=== PATIENT | female | born 1945 | race Caucasian/White ===

== ENCOUNTER 2020-11-13 11:02 | Inpatient (IN) ==
[2020-11-13 11:19] VITALS: BMI 24.3
--- NOTE | 2020-11-13 11:35 | DR.GENAD ---
HPI Time Seen Time Seen by Provider: 11/13/20 11:29 PCP Primary Care Physician: ALLIGOOD Complaint/Symptoms Chief Complaint:: "TESTED POS 11-10-20, STARTED Z PACK AND VITAMINS, HAS PROGRESSIVLY GOTTEN WORSE, SHAKING, AND CONFUSED AT TIMES" Self Treatment fo Chief Complaint: ZPACK AND VITAMINS COVID-19 Coronavirus risk:travel/contact w/high risk person: Yes Has patient experienced Coronavirus symptoms: Yes Coronavirus symptoms experienced: Fever, Coughing and Shortness of Breath Source History Provided: Patient and Family Member Mode of Arrival Mode of Arrival: Wheelchair Timing Onset of Chief Complaint: 11/10/20 PMH PMH Past Medical History: Yes Past Medical History: GERD and Hypertension Past Medical History Comment: HIATAL HERNIA Past Surgical History: Yes Surgical History: Hysterectomy Family History History of Family Medical Conditions: Yes Family Medical History: Diabetes Mellitus, Cancer, ID and Hypertension Social History Does patient currently use any type of tobacco product: No Have you used tobacco products in the last 12 months: No Type of Tobacco Use: None Does any household member use tobacco: No Alcohol Use: None Do you use any recreational Drugs:: No Lives With: Family Lives Where: Home Travel Risk Coronavirus risk:travel/contact w/high risk person: Yes Has patient experienced Coronavirus symptoms: Yes Coronavirus symptoms experienced: Fever, Coughing and Shortness of Breath Infectious screening In the last 2 months have you had wt loss of >10#?: NO Have you had fever, night sweats or hemotysis?: No Have you traveled outside the country in the last 6 months?: No Isolation: Droplet PE Vital Signs Vitals: Temperature 97.7 F Pulse Rate 97 Respiratory Rate 22 Blood Pressure 120/87 O2 Sat by Pulse Oximetry 93 ROR Labs Reviewed Result Diagrams: 11/13/20 11:45 11/13/20 11:45 Laboratory: WBC 5.8 X10^3/uL (3.6-10.0) 11/13/20 11:45 RBC 4.48 X10^6/uL (3.5-5.4) 11/13/20 11:45 Hgb 11.7 g/dL (12.0-16.0) L 11/13/20 11:45 Hct 33.7 % (36.0-47.0) L 11/13/20 11:45 MCV 75.3 fL (80.0-100.0) L 11/13/20 11:45 MCH 26.2 pg (27.0-34.0) L 11/13/20 11:45 MCHC 34.8 g/dL (33.0-35.0) 11/13/20 11:45 RDW 14.1 % (11.6-16.5) 11/13/20 11:45 Plt Count 307 X10^3/uL (150.0-450.0) 11/13/20 11:45 MPV 7.7 fL (7.4-11.0) 11/13/20 11:45 Neut % (Auto) 87.4 % (42.0-75.0) H 11/13/20 11:45 Lymph % (Auto) 3.8 % (21.0-51.0) L 11/13/20 11:45 Mckenzie % (Auto) 8.7 % (0.0-13.0) 11/13/20 11:45 Eos % (Auto) 0.0 % (0.9-2.9) L 11/13/20 11:45 Baso % (Auto) 0.1 % (0.2-1.0) L 11/13/20 11:45 Neut # (Auto) 5.1 x10^3/uL (2.2-4.8) H 11/13/20 11:45 Lymph # (Auto) 0.2 X10^3/uL (1.3-2.9) L 11/13/20 11:45 Mckenzie # (Auto) 0.5 x10^3/uL (0.3-0.8) 11/13/20 11:45 Eos # (Auto) 0.0 x10^3/uL (0.0-0.2) 11/13/20 11:45 Baso # (Auto) 0.0 X10^3/uL (0.0-0.1) 11/13/20 11:45 Absolute Nucleated RBC 0.0 /100WBC 11/13/20 11:45 D-Dimer 1.17 ug/ml (0.0-0.57) H* 11/13/20 11:45 Sodium 111 mmol/L (136-145) L* 11/13/20 11:45 Corrected Sodium 112 mmol/L (136-145) L 11/13/20 11:45 Potassium 2.7 mmol/L (3.5-5.1) L* 11/13/20 11:45 Chloride 76 mmol/L (98-107) L* 11/13/20 11:45 Carbon Dioxide 26.1 mmol/L (21-32) 11/13/20 11:45 BUN 4 mg/dL (7-18) L 11/13/20 11:45 Creatinine 0.47 mg/dL (0.55-1.02) L 11/13/20 11:45 Est GFR (MDRD) Af Amer > 60 (>60) 11/13/20 11:45 Est GFR (MDRD) Non-Af > 60 (>60) 11/13/20 11:45 Glucose 122 mg/dL (65-99) H 11/13/20 11:45 Calcium 8.0 mg/dL (8.5-10.1) L 11/13/20 11:45 Corrected Calcium 9.1 mg/dL (8.5-10.1) 11/13/20 11:45 Ferritin 205 ng/mL (8-252) 11/13/20 11:45 Total Bilirubin 0.80 mg/dL (0.2-1.0) 11/13/20 11:45 AST 29 Units/L (15-37) 11/13/20 11:45 ALT 16 Units/L (12-78) 11/13/20 11:45 Alkaline Phosphatase 91 Units/L (46-116) 11/13/20 11:45 C-Reactive Protein 30.20 mg/L (0-3.0) H 11/13/20 11:45 B-Natriuretic Peptide 226 pg/mL (0-79) H 11/13/20 11:45 Total Protein 6.9 g/dL (6.4-8.2) 11/13/20 11:45 Albumin 2.6 g/dL (3.4-5.0) L 11/13/20 11:45 Globulin 4.3 g/dL (2.5-4.5) 11/13/20 11:45 Albumin/Globulin Ratio 0.6 Ratio (1.1-2.1) L 11/13/20 11:45 Specimen Type Catherized urine 11/13/20 12:04 Urine Color Yellow (YELLOW) 11/13/20 12:04 Urine Appearance Flocculent (CLEAR) 11/13/20 12:04 Urine pH 6.0 (5.0 - 8.0) 11/13/20 12:04 Ur Specific [place] 1.020 (1.000-1.030) 11/13/20 12:04 Urine Protein 2+ (NEGATIVE) 11/13/20 12:04 Urine Glucose (UA) Negative (NEGATIVE) 11/13/20 12:04 Urine Ketones 4+ (NEGATIVE) 11/13/20 12:04 Urine Occult Blood 1+ (NEGATIVE) 11/13/20 12:04 Urine Nitrite Positive (NEGATIVE) 11/13/20 12:04 Urine Bilirubin Negative (NEGATIVE) 11/13/20 12:04 Urine Urobilinogen Normal (NORMAL) 11/13/20 12:04 Ur Leukocyte Esterase 2+ (NEGATIVE) 11/13/20 12:04 Urine RBC 5-10 /HPF (0-3) A 11/13/20 12:04 Urine WBC Tntc /HPF (0-5) A 11/13/20 12:04 Ur Squamous Epith Cells Moderate /HPF (NEGATIVE) 11/13/20 12:04 Ur Transition Epith Cell Few /HPF (NEGATIVE) 11/13/20 12:04 Urine Bacteria 3+ /HPF (NEGATIVE) 11/13/20 12:04 Other Casts Few /LPF (NEGATIVE) 11/13/20 12:04 Urine Mucus Moderate /HPF (NEGATIVE) 11/13/20 12:04 Ur Culture Indicated? Yes/culture set up 11/13/20 12:04 Opioid Opioid Risk Tool Age (Chuck box if 16-45): No History of Preadolescent Sexual Abuse: No Total: 0 Total Score Risk Category: Low Risk Copyright: [facility] predicting aberrant behaviors Diagnosis Discharge Problem: Acute hyponatremia, Acute UTI, Hypokalemia, COVID-19 virus infection Pneumonia Qualifiers: Pneumonia type: due to unspecified organism Laterality: bilateral Lung location: lower lobe of lung Qualified Code(s): J18.9 - Pneumonia, unspecified organism Instructions Forms: Precautions for COVID19 Patient Portal Social Distancing
[2020-11-13 11:57] LABS: BASOPHILS % (AUTO) 0.1 % (0.2-1.0); HEMATOCRIT 33.7 % (36.0-47.0); HEMOGLOBIN 11.7 g/dL (12.0-16.0); LYMPHOCYTES # (AUTO) 0.2 X10^3/uL (1.3-2.9); LYMPHOCYTES % (AUTO) 3.8 % (21.0-51.0); MEAN CORPUSCULAR HEMOGLOBIN 26.2 pg (27.0-34.0); MEAN CORPUSCULAR HGB CONC 34.8 g/dL (33.0-35.0); MEAN CORPUSCULAR VOLUME 75.3 fL (80.0-100.0); MEAN PLATELET VOLUME 7.7 fL (7.4-11.0); MONOCYTES # (AUTO) 0.5 x10^3/uL (0.3-0.8); MONOCYTES % (AUTO) 8.7 % (0.0-13.0); NEUTROPHILS # (AUTO) 5.1 x10^3/uL (2.2-4.8); NEUTROPHILS % (AUTO) 87.4 % (42.0-75.0); PLATELET COUNT 307 X10^3/uL (150.0-450.0); RED BLOOD COUNT 4.48 X10^6/uL (3.5-5.4); RED CELL DISTRIBUTION WIDTH 14.1 % (11.6-16.5); WHITE BLOOD COUNT 5.8 X10^3/uL (3.6-10.0)
[2020-11-13 12:08] LABS: ALANINE AMINOTRANSFERASE 16 Units/L (12-78); ALBUMIN 2.6 g/dL (3.4-5.0); ALKALINE PHOSPHATASE 91 Units/L (46-116); ASPARTATE AMINO TRANSFERASE 29 Units/L (15-37); BLOOD UREA NITROGEN 4 mg/dL (7-18); CARBON DIOXIDE 26.1 mmol/L (21-32); COR CA(FOR HYPOALB) 9.1 mg/dL (8.5-10.1); COR NA(FOR HYPERGLY) 112 mmol/L (136-145); CREATININE 0.47 mg/dL (0.55-1.02); TOTAL PROTEIN 6.9 g/dL (6.4-8.2); eGFR NON BLACK RACES > 60 (>60)
[2020-11-13] MEDS ORDERED: NS 1000 ML 1,000 ML ONE (12:19)
[2020-11-13 12:20] LABS: CHLORIDE 76 mmol/L (98-107); SODIUM 111 mmol/L (136-145)
[2020-11-13 12:28] LABS: BILIRUBIN,URINE NEGATIVE (NEGATIVE); BLOOD/HEMOGLOBIN,URINE 1+ (NEGATIVE); GLUCOSE, URINE NEGATIVE (NEGATIVE); KETONES,URINE 4+ (NEGATIVE); LEUKOCYTE ESTERASE ,URINE 2+ (NEGATIVE); NITRITES,URINE POSITIVE (NEGATIVE); PROTEIN,URINE 2+ (NEGATIVE); UROBILINOGEN,URINE NORMAL (NORMAL)
[2020-11-13 12:30] LABS: COLOR,URINE YELLOW (YELLOW)
[2020-11-13 12:31] LABS: APPEARANCE,URINE FLOCCULENT (CLEAR)
[2020-11-13] MEDS ORDERED: NS 1000 ML 1,000 ML IV ONE (12:32)
[2020-11-13 12:41] LABS: BACTERIA,URINE 3+ /HPF (NEGATIVE); SQUAMOUS EPITHELIAL CELL,UR MODERATE /HPF (NEGATIVE); TRANSITIONAL EPI CELLS,URINE FEW /HPF (NEGATIVE)
[2020-11-13 12:42] LABS: MUCUS,URINE MODERATE /HPF (NEGATIVE); OTHER CASTS, URINE FEW /LPF (NEGATIVE)
[2020-11-13] MEDS ORDERED: POTASSIUM CHLORIDE LIQ 20 MEQ UDC PO ONE (13:06)
[2020-11-13] MEDS ORDERED: POTASSIUM CHLORIDE LIQ 20 MEQ UDC ONE (13:17)
--- NOTE | 2020-11-13 13:59 | CT ---
PROCEDURE: CT Head without Contrast .HISTORY: Confusion and altered mental status.TECHNIQUE: Axial images were performed through the head without the administration of IV contrast with multiplanar reformations . Dose reduction techniques including Automated Exposure Control (AEC) and adjustment of mA and kV were utilized .COMPARISON: None .TECHNICAL QUALITY: Satisfactory .FINDINGS:Brain shows no mass, hemorrhage, or acute stroke.Mild periventricular old micro ischemic changes.Ventricles are normal size for patient's age.No acute skull or scalp abnormality.Visualized sinuses and mastoids are clear.IMPRESSION:1. No acute intracranial abnormality.2. Senescent changes.Electronically signed by: Ganga Wilkins (Nov 13, 2020 13:57:17)
--- NOTE | 2020-11-13 14:02 | CT ---
PROCEDURE: CTA Chest .HISTORY: covid, eklevated d-dimer .TECHNIQUE: Axial images were performed through the chest with the administration of IV contrast with multiplanar reformations . 3D and MIPS reconstructions were performed and reviewed. Dose reduction techniques including Automated Exposure Control (AEC) and adjustment of mA and kV were utilized .COMPARISON: None .TECHNICAL QUALITY: Satisfactory .FINDINGS:[id number] atherosclerotic calcifications thoracic aorta with mild tortuosity and no aneurysm or dissection.No evidence of pulmonary embolus.Mediastinum and hilar regions show no masses or lymphadenopathy.Moderate hiatal hernia.Normal size heart with trace pericardial effusion.Mild patchy peripheral ground-glass consolidation lung bases and right upper lobe consistent with mild COVID-19 pneumonia. No masses or pleural fluid. No pneumothorax.Visualized upper abdomen shows no significant abnormality.No acute bony abnormality.IMPRESSION:1. No pulmonary embolus or aortic dissection.2. Mild bilateral COVID-19 pneumonia.3. Trace pericardial effusion.Electronically signed by: Ganga Wilkins (Nov 13, 2020 14:00:55)
[2020-11-13] MEDS ORDERED: ROCEPHIN VIAL 1 GRAM 1 G in NS 100 ML IV + SPIKE MINIBAG* 100 ML IV ONE (14:06)
[2020-11-13] MEDS ORDERED: NS 250 ML IV 250 ML IV ONE (14:12)
--- NOTE | 2020-11-13 14:12 | RAD ---
HISTORYSOB, COVID+STUDYCHEST, 1 VIEWCOMPARISONCT chest same dayFINDINGSThe cardiomediastinal silhouette is unremarkable. Patchy bilateral airspace opacities. The bony thorax appears intact.IMPRESSIONBilateral airspace opacities consistent with history of COVID-19. Continued follow-up recommended.Electronically signed by: SARIAH CAT (Nov 13, 2020 14:10:37)
[2020-11-13] MEDS ORDERED: ROCEPHIN 1 GRAM IV PREMIX 1 G/50 ML IV.SOLN. IV ONE (14:13)
[2020-11-13 14:54] LABS: ABG ALLEN TEST POS; ABG BASE EXCESS 1.6 mmol/L (-2.0-2.0); ABG HCO3 24.2 mmol/L (22-26)
[2020-11-13] MEDS ORDERED: ROBITUSSIN AC PO PRN (16:24)
[2020-11-13] MEDS: REMDESIVIR 200 MG in NS 250 ML IV 250 ML IV ONE (16:25)
[2020-11-13 18:56] LABS: BILIRUBIN,URINE NEGATIVE (NEGATIVE); BLOOD/HEMOGLOBIN,URINE 1+ (NEGATIVE); GLUCOSE, URINE NEGATIVE (NEGATIVE); KETONES,URINE 3+ (NEGATIVE); LEUKOCYTE ESTERASE ,URINE 3+ (NEGATIVE); NITRITES,URINE NEGATIVE (NEGATIVE); PH,URINE 6.5 (5.0 - 8.0); PROTEIN,URINE 1+ (NEGATIVE); UROBILINOGEN,URINE NORMAL (NORMAL)
[2020-11-13 18:58] LABS: APPEARANCE,URINE SLIGHTLY HAZY (CLEAR); COLOR,URINE YELLOW (YELLOW)
[2020-11-13 19:10] LABS: BACTERIA,URINE 2+ /HPF (NEGATIVE); COARSE GRANULAR CASTS,URINE FEW /HPF (NEGATIVE); MUCUS,URINE FEW /HPF (NEGATIVE); SQUAMOUS EPITHELIAL CELL,UR FEW /HPF (NEGATIVE)
[2020-11-13] MEDS: PULMICORT NEB TX 0.5 MG NEB SCH (21:10)
[2020-11-13] MEDS: BROVANA IN SCH (21:10)
[2020-11-13] MEDS: PEPCID TAB 40 MG PO SCH (21:13)
[2020-11-13] MEDS: ZINC SULFATE PO SCH (21:13)
[2020-11-13] MEDS: LOPRESSOR TAB 50 MG PO SCH (21:13)
[2020-11-13] MEDS: LOVENOX INJ 30 MG SYR SC SCH (21:14)
[2020-11-13] MEDS: SOLU-Medrol 40 MG VIAL IVP SCH (21:16)
[2020-11-13] MEDS: NS 1000 ML 1,000 ML IV SCH (21:19)
[2020-11-13] MEDS: ASCORBIC ACID INJ MULTI-DOSE VIAL 1,500 MG in NS 100 ML IV 100 ML IV SCH (21:20)
[2020-11-14] MEDS ORDERED: COLACE CAP 100 MG PO PRN (00:46)
[2020-11-14] MEDS: ASCORBIC ACID INJ MULTI-DOSE VIAL 1,500 MG in NS 100 ML IV 100 ML IV SCH ×4 (02:18→20:58)
[2020-11-14] MEDS: SOLU-Medrol 40 MG VIAL IVP SCH ×2 (05:00→23:00)
[2020-11-14 07:01] LABS: BASOPHILS % (AUTO) 0.5 % (0.2-1.0); HEMATOCRIT 34.6 % (36.0-47.0); LYMPHOCYTES # (AUTO) 0.2 X10^3/uL (1.3-2.9); LYMPHOCYTES % (AUTO) 5.8 % (21.0-51.0); MEAN CORPUSCULAR HEMOGLOBIN 26.3 pg (27.0-34.0); MEAN CORPUSCULAR HGB CONC 34.7 g/dL (33.0-35.0); MEAN CORPUSCULAR VOLUME 75.6 fL (80.0-100.0); MEAN PLATELET VOLUME 8.2 fL (7.4-11.0); MONOCYTES # (AUTO) 0.1 x10^3/uL (0.3-0.8); MONOCYTES % (AUTO) 2.4 % (0.0-13.0); NEUTROPHILS # (AUTO) 3.8 x10^3/uL (2.2-4.8); NEUTROPHILS % (AUTO) 91.3 % (42.0-75.0); PLATELET COUNT 351 X10^3/uL (150.0-450.0); RED BLOOD COUNT 4.58 X10^6/uL (3.5-5.4); RED CELL DISTRIBUTION WIDTH 14.5 % (11.6-16.5); WHITE BLOOD COUNT 4.2 X10^3/uL (3.6-10.0)
[2020-11-14 07:51] LABS: BAND NEUTROPHILS % 1 % (0-10)
[2020-11-14 07:52] LABS: ALANINE AMINOTRANSFERASE 19 Units/L (12-78); ALBUMIN 2.4 g/dL (3.4-5.0); ALKALINE PHOSPHATASE 84 Units/L (46-116); ASPARTATE AMINO TRANSFERASE 29 Units/L (15-37); BLOOD UREA NITROGEN 4 mg/dL (7-18); CALCIUM 8.1 mg/dL (8.5-10.1); CARBON DIOXIDE 27.5 mmol/L (21-32); CHLORIDE 91 mmol/L (98-107); CKMB % 2.9 % (<4); COR CA(FOR HYPOALB) 9.4 mg/dL (8.5-10.1); COR NA(FOR HYPERGLY) 129 mmol/L (136-145); CREATINE KINASE 201 Units/L (26-192); CREATININE 0.53 mg/dL (0.55-1.02); MAGNESIUM 1.7 mg/dL (1.7-2.9); PLATELET MORPHOLOGY COMMENT NORMAL (NORMAL); SODIUM 128 mmol/L (136-145); TOTAL PROTEIN 6.5 g/dL (6.4-8.2); TROPONIN I < 0.02 ng/mL (0-1.5); eGFR NON BLACK RACES > 60 (>60)
[2020-11-14 08:04] LABS: CREATINE KINASE MB 5.8 ng/mL (0-4.0)
[2020-11-14] MEDS ORDERED: NS 250 ML IV 250 ML IV ONE (08:27)
[2020-11-14] MEDS ORDERED: VITAMIN A PO SCH (09:00)
[2020-11-14] MEDS ORDERED: VITAMIN D (1.25MG) PO SCH (09:00)
[2020-11-14] MEDS: REMDESIVIR 100 MG in NS 100 ML IV + SPIKE MINIBAG* 120 ML IV SCH (09:06)
[2020-11-14] MEDS: LOPRESSOR TAB 50 MG PO SCH ×2 (09:09→20:59)
[2020-11-14] MEDS: PULMICORT NEB TX 0.5 MG NEB SCH ×2 (09:10→20:31)
[2020-11-14] MEDS: BROVANA IN SCH ×2 (09:10→20:31)
[2020-11-14] MEDS: ZINC SULFATE PO SCH ×2 (09:11→20:59)
[2020-11-14] MEDS: PROTONIX TAB 40 MG PO SCH (09:16)
[2020-11-14] MEDS: LOVENOX INJ 30 MG SYR SC SCH ×2 (09:17→20:55)
[2020-11-14] MEDS: TRICOR TAB 160 MG PO SCH (09:17)
--- NOTE | 2020-11-14 10:43 | RAD ---
HISTORYCOVID PNEUMONIA, SOB, FOLLOW UPSTUDYCHEST x-ray, 1 VIEWCOMPARISONX-ray from previous dayFINDINGSLower lung infiltrates are unchanged. Probable COPD. Persistent cardiomegaly without pulmonary venous congestion. No pneumothorax or pleural effusion is seen.IMPRESSIONBilateral pneumonia appears unchanged.Electronically signed by: Otoniel Leonardo (Nov 14, 2020 10:40:53)
[2020-11-14] MEDS ORDERED: K-DUR TAB 20 MEQ PO PRN (11:43)
[2020-11-14] MEDS ORDERED: POTASSIUM CHL 40 MEQ/NS 0.45% 500 ML IV PRN ×2 (11:43→11:44)
[2020-11-14] MEDS ORDERED: K-RIDER 10 MEQ/NS 100 ML 10 MEQ/100 ML BAG IV PRN ×2 (11:43→11:44)
[2020-11-14] MEDS ORDERED: MICRO K EXTEN CAP 10 MEQ PO PRN ×2 (11:43→11:44)
[2020-11-14] MEDS ORDERED: POTASSIUM CHL 60 MEQ/NS 0.45% 500 ML IV PRN ×2 (11:43→11:44)
[2020-11-14] MEDS ORDERED: POTASSIUM CHLORIDE LIQ 20 MEQ UDC PO PRN ×2 (11:43→11:44)
[2020-11-14] MEDS ORDERED: KLOR-CON PO PRN (11:43)
[2020-11-14] MEDS: K-DUR TAB 20 MEQ PO PRN ×2 (12:21→13:39)
[2020-11-14] MEDS: KLOR-CON PO PRN ×2 (13:39→17:47)
[2020-11-14] MEDS ORDERED: ROCEPHIN 1 GRAM IV PREMIX 1 G/50 ML IV.SOLN. IV ONE (15:29)
[2020-11-14] MEDS: REMDESIVIR 200 MG in NS 250 ML IV 250 ML IV ONE (16:09)
[2020-11-14] MEDS: MAGNESIUM SULFATE 1 GRAM/100 mL PREMIX 1 GM/100 ML BAG IV PRN ×2 (18:00→21:48)
--- NOTE | 2020-11-14 18:12 | DR.H&P ---
H&P - History & Physical for Day of: H&P Date: 11/14/20 - Chief Complaint Chief Complaint: WEAKNESS, DIZZY, CONFUSED PER FAMILY COVID 19+ - History of Present Illness History of Present Illness: PT IS 75 WF ER ADMISSION WITH REPORTS PER SON PT TESTED POS 11-10-20, STARTED Z PACK AND VITAMINS, HAS PROGRESSIVLY GOTTEN WORSE, SHAKING, AND CONFUSED AT TIMES" PT WAS NOTED TO HAVE HYPONATREMIA ON ADMISSION LABS. PT ADMITTED FOR TREATMENT OF ACUTE ILLNESS. - Past Medical History Past Medical History: Hypertension, GERD - Past Surgical History Surgical History: Unknown - Family History Family Medical History: [place] - Social History Does patient currently use any type of tobacco product: No Have you used tobacco products in the last 12 months: No Type of Tobacco Use: None Does any household member use tobacco: No Alcohol Use: None Drug Use: None Prescription drug monitoring program results: PDMP reviewed and no concerns identified - Medications Home Medications: No Known Drug Allergies Allergy (Verified 11/13/20 13:52) CONTINUE taking the following medications amlodipine 5 mg PO DAILY 11/13/20 [History] azithromycin 250 mg PO DAILY 11/13/20 [History] codeine-guaifenesin [Virtussin AC] 10 ml PO PRN PRN 11/13/20 [History] colesevelam 625 mg PO PRN PRN 11/13/20 [History] famotidine 40 mg PO HS 11/13/20 [History] metoprolol tartrate 50 mg PO BID 11/13/20 [History] pantoprazole 40 mg PO DAILY 11/13/20 [History] - Review of Systems Constitutional: Chills, Weakness, Malaise Eyes: No Symptoms Reported ENT: No Symptoms Reported Respiratory: SOB with Excertion Cardiovascular: denies: Chest Pain Gastrointestinal: Nausea, Vomiting, Other (APPETITE LOSS) Genitourinary: No Symptoms Reported Musculoskeletal: No Symptoms Reported Skin: No Symptoms Reported Neurological: Weakness, Confusion - Physical Exam Vital Signs: Temperature 98.2 F Pulse Rate [Left Brachial] 72 Pulse Rate 67 Respiratory Rate 20 Blood Pressure [Left Arm] 118/58 Blood Pressure 180/69 O2 Sat by Pulse Oximetry 97 Oriented: Person Eyes: Normal Ear: Normal Nose: Normal Throat: Dry Respiratory: Diminished Throughout Cardiovascular: Tachycardia, Edema : Normal Auscultation: Bowel Sounds: Normal Palpation: Normal Tenderness: Epigastric, Mild Skin: Decreased Turgur Musculoskeletal: Right, Left, Motor Deficit Psychiatric: Anxiety Affect: Anxious Speech Pattern: Clear, Appropriate - Assessment/Plan (1) Acute hyponatremia Status: Acute Plan: ADMIT, CT HEAD ON ADMISSION. BLOOD AND URINE CULTURE ON ADMISSION, GENTLE IV HYDRATION. STRICT I&OS, BP AND CARDIAC MONITORING. IV ATBX, SOLU MEDROL, LOVENOX, REMDESIVIR. AM LABS, VERIFY HOME MEDICATION (2) COVID-19 virus infection Status: Acute (3) Pneumonia Qualifiers: Pneumonia type: due to unspecified organism Laterality: bilateral Lung location: lower lobe of lung Qualified Code(s): J18.9 - Pneumonia, unspecified organism Status: Acute (4) Acute UTI Status: Acute (5) Hypokalemia Status: Acute - Allergies Allergies/Adverse Reactions: Allergies Allergy/AdvReac Type Severity Reaction Status Date / Time No Known Drug Allergies Allergy Verified 11/13/20 13:52
[2020-11-14] MEDS: NS 1000 ML 1,000 ML IV SCH (20:53)
[2020-11-14] MEDS: PEPCID TAB 40 MG PO SCH (20:59)
[2020-11-14] MEDS: COLACE CAP 100 MG PO SCH (21:00)
[2020-11-14] MEDS: SOLU-Medrol 125 MG VIAL IVP SCH (21:00)
[2020-11-15] MEDS: ASCORBIC ACID INJ MULTI-DOSE VIAL 1,500 MG in NS 100 ML IV 100 ML IV SCH ×4 (02:13→21:32)
[2020-11-15] MEDS: SOLU-Medrol 125 MG VIAL IVP SCH ×3 (05:00→21:31)
[2020-11-15 06:41] LABS: MAGNESIUM 2.3 mg/dL (1.7-2.9)
[2020-11-15 06:50] LABS: BASOPHILS # (AUTO) 0.1 X10^3/uL (0.0-0.1); BASOPHILS % (AUTO) 0.6 % (0.2-1.0); HEMATOCRIT 33.5 % (36.0-47.0); HEMOGLOBIN 11.3 g/dL (12.0-16.0); LYMPHOCYTES # (AUTO) 0.6 X10^3/uL (1.3-2.9); LYMPHOCYTES % (AUTO) 4.9 % (21.0-51.0); MEAN CORPUSCULAR HEMOGLOBIN 25.9 pg (27.0-34.0); MEAN CORPUSCULAR HGB CONC 33.6 g/dL (33.0-35.0); MEAN PLATELET VOLUME 8.2 fL (7.4-11.0); MONOCYTES # (AUTO) 0.6 x10^3/uL (0.3-0.8); MONOCYTES % (AUTO) 4.9 % (0.0-13.0); NEUTROPHILS # (AUTO) 11.7 x10^3/uL (2.2-4.8); NEUTROPHILS % (AUTO) 89.6 % (42.0-75.0); PLATELET COUNT 384 X10^3/uL (150.0-450.0); RED BLOOD COUNT 4.35 X10^6/uL (3.5-5.4); RED CELL DISTRIBUTION WIDTH 14.5 % (11.6-16.5)
[2020-11-15 07:01] LABS: ALANINE AMINOTRANSFERASE 20 Units/L (12-78); ALBUMIN 2.4 g/dL (3.4-5.0); ALKALINE PHOSPHATASE 87 Units/L (46-116); ASPARTATE AMINO TRANSFERASE 30 Units/L (15-37); BLOOD UREA NITROGEN 4 mg/dL (7-18); CALCIUM 7.7 mg/dL (8.5-10.1); CARBON DIOXIDE 29.8 mmol/L (21-32); CHLORIDE 95 mmol/L (98-107); COR NA(FOR HYPERGLY) 133 mmol/L (136-145); CREATININE 0.46 mg/dL (0.55-1.02); SODIUM 132 mmol/L (136-145); eGFR NON BLACK RACES > 60 (>60)
[2020-11-15] MEDS ORDERED: NS 100 ML IV 100 ML ONE (08:26)
[2020-11-15] MEDS: LOPRESSOR TAB 50 MG PO SCH ×2 (08:28→21:34)
[2020-11-15] MEDS: MILK OF MAGNESIA PO SCH (08:28)
[2020-11-15] MEDS: REMDESIVIR 100 MG in NS 100 ML IV + SPIKE MINIBAG* 120 ML IV SCH (08:29)
[2020-11-15] MEDS: PROTONIX TAB 40 MG PO SCH (08:29)
[2020-11-15] MEDS: TRICOR TAB 160 MG PO SCH (08:29)
[2020-11-15] MEDS: VITAMIN D3 125 mcg (5,000 UNITS) PO SCH (08:30)
[2020-11-15] MEDS: VITAMIN A PO SCH (08:30)
[2020-11-15] MEDS: ZINC SULFATE PO SCH ×2 (08:30→21:35)
[2020-11-15] MEDS: LOVENOX INJ 30 MG SYR SC SCH ×2 (08:32→21:33)
[2020-11-15] MEDS: K-DUR TAB 20 MEQ PO PRN ×2 (09:40→21:35)
--- NOTE | 2020-11-15 10:28 | RAD ---
HISTORYCOVID PNEUMONIA Relevant Clinical InformationSTUDYCHEST, 1 [id number]/23/2021FINDINGSTrachea is midline. There is stable mild cardiomegaly. There is unchanged mild elevation of the diaphragm. There is again seen and interstitial and alveolar infiltrate involving the right lower lobe and some ground-glass radiopacities in the left base, no pleural effusion or pneumothorax. Overall no significant change.IMPRESSIONStable interstitial and ground-glass radiopacities involving the bases right more than left.Electronically signed by: Leatha Edward (Nov 15, 2020 10:26:26)
[2020-11-15] MEDS: ROCEPHIN VIAL 1 GRAM 1 G in NS 100 ML IV + SPIKE MINIBAG* 100 ML IV SCH (11:58)
[2020-11-15] MEDS: NS 1000 ML 1,000 ML IV SCH ×2 (11:59→21:30)
[2020-11-15 16:25] LABS: ABG BASE EXCESS 9.3 mmol/L (-2.0-2.0); ABG HCO3 32.5 mmol/L (22-26)
[2020-11-15] MEDS: PULMICORT NEB TX 0.5 MG NEB SCH (19:40)
[2020-11-15] MEDS: BROVANA IN SCH (19:40)
[2020-11-15] MEDS ORDERED: TYLENOL 325 MG TAB PO PRN (19:44)
[2020-11-15] MEDS: PEPCID TAB 40 MG PO SCH (21:34)
[2020-11-15] MEDS: COLACE CAP 100 MG PO SCH (21:35)
[2020-11-16] MEDS: ASCORBIC ACID INJ MULTI-DOSE VIAL 1,500 MG in NS 100 ML IV 100 ML IV SCH ×4 (02:23→20:48)
[2020-11-16] MEDS: SOLU-Medrol 125 MG VIAL IVP SCH ×3 (05:06→22:00)
[2020-11-16 06:51] LABS: BASOPHILS % (AUTO) 0.1 % (0.2-1.0); EOSINOPHILS % (AUTO) 0.1 % (0.9-2.9); HEMATOCRIT 33.8 % (36.0-47.0); HEMOGLOBIN 11.3 g/dL (12.0-16.0); LYMPHOCYTES # (AUTO) 0.3 X10^3/uL (1.3-2.9); LYMPHOCYTES % (AUTO) 1.8 % (21.0-51.0); MEAN CORPUSCULAR HEMOGLOBIN 25.9 pg (27.0-34.0); MEAN CORPUSCULAR HGB CONC 33.4 g/dL (33.0-35.0); MEAN CORPUSCULAR VOLUME 77.5 fL (80.0-100.0); MEAN PLATELET VOLUME 7.8 fL (7.4-11.0); MONOCYTES # (AUTO) 0.6 x10^3/uL (0.3-0.8); MONOCYTES % (AUTO) 3.9 % (0.0-13.0); NEUTROPHILS # (AUTO) 14.3 x10^3/uL (2.2-4.8); NEUTROPHILS % (AUTO) 94.1 % (42.0-75.0); PLATELET COUNT 440 X10^3/uL (150.0-450.0); RED BLOOD COUNT 4.36 X10^6/uL (3.5-5.4); WHITE BLOOD COUNT 15.2 X10^3/uL (3.6-10.0)
[2020-11-16 07:43] LABS: ALANINE AMINOTRANSFERASE 25 Units/L (12-78); ALBUMIN 2.3 g/dL (3.4-5.0); ALKALINE PHOSPHATASE 94 Units/L (46-116); ASPARTATE AMINO TRANSFERASE 30 Units/L (15-37); BLOOD UREA NITROGEN 6 mg/dL (7-18); CALCIUM 7.6 mg/dL (8.5-10.1); CARBON DIOXIDE 31.7 mmol/L (21-32); CHLORIDE 97 mmol/L (98-107); COR NA(FOR HYPERGLY) 134 mmol/L (136-145); CREATININE 0.44 mg/dL (0.55-1.02); SODIUM 133 mmol/L (136-145); TOTAL PROTEIN 5.8 g/dL (6.4-8.2); eGFR NON BLACK RACES > 60 (>60)
[2020-11-16 07:52] LABS: BAND NEUTROPHILS % 1 % (0-10); PLATELET MORPHOLOGY COMMENT NORMAL (NORMAL)
--- NOTE | 2020-11-16 08:04 | RAD ---
HISTORYCOVID, SOB Relevant Clinical InformationSTUDYCHEST, 1 [id number]/24/2021FINDINGSThe trachea is midline. Borderline heart size. There is no evidence of pneumothorax or pleural effusions. There has been improvement of aeration at the base there are still patchy alveolar radiopacities at that level. There has been interval improvement of small left lower lobe radiopacities.IMPRESSIONBetter aeration at the bases with mild improvement of bibasal alveolar radiopacities.Electronically signed by: Leatha Edward (Nov 16, 2020 08:01:58)
[2020-11-16] MEDS: LOVENOX INJ 30 MG SYR SC SCH ×2 (08:12→20:54)
[2020-11-16] MEDS: LOPRESSOR TAB 50 MG PO SCH ×2 (08:12→20:47)
[2020-11-16] MEDS: MILK OF MAGNESIA PO SCH (08:13)
[2020-11-16] MEDS: VITAMIN D3 125 mcg (5,000 UNITS) PO SCH (08:17)
[2020-11-16] MEDS: TRICOR TAB 160 MG PO SCH (08:18)
[2020-11-16] MEDS: PROTONIX TAB 40 MG PO SCH (08:18)
[2020-11-16] MEDS: VITAMIN A PO SCH (08:18)
[2020-11-16] MEDS: ZINC SULFATE PO SCH ×2 (08:18→20:47)
[2020-11-16] MEDS: ROCEPHIN VIAL 1 GRAM 1 G in NS 100 ML IV + SPIKE MINIBAG* 100 ML IV SCH (08:18)
[2020-11-16] MEDS: BROVANA IN SCH ×2 (09:32→20:10)
[2020-11-16] MEDS: PULMICORT NEB TX 0.5 MG NEB SCH ×2 (09:33→20:10)
[2020-11-16] MEDS: REMDESIVIR 100 MG in NS 100 ML IV + SPIKE MINIBAG* 120 ML IV SCH (09:35)
[2020-11-16] MEDS: PEPCID TAB 40 MG PO SCH (20:47)
[2020-11-16] MEDS: COLACE CAP 100 MG PO SCH (20:48)
[2020-11-16] MEDS: NS 1000 ML 1,000 ML IV SCH (23:00)
[2020-11-17] MEDS: ASCORBIC ACID INJ MULTI-DOSE VIAL 1,500 MG in NS 100 ML IV 100 ML IV SCH ×4 (02:00→20:25)
[2020-11-17] MEDS: SOLU-Medrol 125 MG VIAL IVP SCH ×3 (06:00→20:26)
[2020-11-17 06:59] LABS: BASOPHILS % (AUTO) 0.1 % (0.2-1.0); HEMOGLOBIN 11.5 g/dL (12.0-16.0); LYMPHOCYTES # (AUTO) 0.6 X10^3/uL (1.3-2.9); LYMPHOCYTES % (AUTO) 3.9 % (21.0-51.0); MEAN CORPUSCULAR HEMOGLOBIN 25.9 pg (27.0-34.0); MEAN CORPUSCULAR HGB CONC 33.7 g/dL (33.0-35.0); MEAN CORPUSCULAR VOLUME 76.7 fL (80.0-100.0); MEAN PLATELET VOLUME 7.7 fL (7.4-11.0); MONOCYTES # (AUTO) 0.9 x10^3/uL (0.3-0.8); MONOCYTES % (AUTO) 5.5 % (0.0-13.0); NEUTROPHILS # (AUTO) 14.6 x10^3/uL (2.2-4.8); NEUTROPHILS % (AUTO) 90.5 % (42.0-75.0); PLATELET COUNT 507 X10^3/uL (150.0-450.0); RED BLOOD COUNT 4.44 X10^6/uL (3.5-5.4); RED CELL DISTRIBUTION WIDTH 14.6 % (11.6-16.5); WHITE BLOOD COUNT 16.1 X10^3/uL (3.6-10.0)
[2020-11-17 07:00] LABS: ALANINE AMINOTRANSFERASE 32 Units/L (12-78); ALBUMIN 2.4 g/dL (3.4-5.0); ALKALINE PHOSPHATASE 95 Units/L (46-116); ASPARTATE AMINO TRANSFERASE 34 Units/L (15-37); BLOOD UREA NITROGEN 5 mg/dL (7-18); CALCIUM 7.5 mg/dL (8.5-10.1); CARBON DIOXIDE 36.3 mmol/L (21-32); CHLORIDE 95 mmol/L (98-107); COR CA(FOR HYPOALB) 8.8 mg/dL (8.5-10.1); COR NA(FOR HYPERGLY) 135 mmol/L (136-145); CREATININE 0.46 mg/dL (0.55-1.02); SODIUM 134 mmol/L (136-145); TOTAL PROTEIN 5.8 g/dL (6.4-8.2); eGFR NON BLACK RACES > 60 (>60)
[2020-11-17] MEDS: NS 1000 ML 1,000 ML IV SCH (07:25)
[2020-11-17] MEDS: PULMICORT NEB TX 0.5 MG NEB SCH ×2 (08:01→20:30)
[2020-11-17] MEDS: BROVANA IN SCH ×2 (08:01→20:30)
[2020-11-17 08:23] LABS: BAND NEUTROPHILS % 1 % (0-10); PLATELET MORPHOLOGY COMMENT NORMAL (NORMAL)
[2020-11-17] MEDS: LOPRESSOR TAB 50 MG PO SCH ×2 (08:27→20:26)
[2020-11-17] MEDS: PROTONIX TAB 40 MG PO SCH (08:28)
[2020-11-17] MEDS: REMDESIVIR 100 MG in NS 100 ML IV + SPIKE MINIBAG* 120 ML IV SCH (08:28)
[2020-11-17] MEDS: MILK OF MAGNESIA PO SCH (08:28)
[2020-11-17] MEDS: TRICOR TAB 160 MG PO SCH (08:29)
[2020-11-17] MEDS: ROCEPHIN VIAL 1 GRAM 1 G in NS 100 ML IV + SPIKE MINIBAG* 100 ML IV SCH (08:29)
[2020-11-17] MEDS: VITAMIN A PO SCH (08:29)
[2020-11-17] MEDS: VITAMIN D3 125 mcg (5,000 UNITS) PO SCH (08:29)
[2020-11-17] MEDS: ZINC SULFATE PO SCH ×2 (08:30→20:26)
[2020-11-17] MEDS: K-DUR TAB 20 MEQ PO PRN ×2 (08:30→12:08)
[2020-11-17] MEDS: LOVENOX INJ 30 MG SYR SC SCH ×2 (08:33→20:25)
[2020-11-17] MEDS ORDERED: LASIX IVP ONE (12:12)
[2020-11-17 14:55] LABS: BILIRUBIN,URINE NEGATIVE (NEGATIVE); BLOOD/HEMOGLOBIN,URINE NEGATIVE (NEGATIVE); GLUCOSE, URINE NEGATIVE (NEGATIVE); KETONES,URINE NEGATIVE (NEGATIVE); LEUKOCYTE ESTERASE ,URINE NEGATIVE (NEGATIVE); NITRITES,URINE NEGATIVE (NEGATIVE); PROTEIN,URINE NEGATIVE (NEGATIVE); UROBILINOGEN,URINE NORMAL (NORMAL)
[2020-11-17 15:02] LABS: APPEARANCE,URINE CLEAR (CLEAR); COLOR,URINE STRAW (YELLOW)
[2020-11-17] MEDS: PEPCID TAB 40 MG PO SCH (20:25)
[2020-11-17] MEDS: COLACE CAP 100 MG PO SCH (20:26)
[2020-11-18] MEDS: ASCORBIC ACID INJ MULTI-DOSE VIAL 1,500 MG in NS 100 ML IV 100 ML IV SCH ×2 (02:04→09:27)
[2020-11-18] MEDS: NS 1000 ML 1,000 ML IV SCH (02:04)
[2020-11-18 05:59] LABS: ABG BASE EXCESS 16.2 mmol/L (-2.0-2.0)
[2020-11-18 06:03] LABS: ABG HCO3 40.3 mmol/L (22-26)
[2020-11-18 06:04] LABS: ABG ALLEN TEST POS
--- NOTE | 2020-11-18 06:48 | RAD ---
HISTORYCOVID-19 pneumoniaSTUDYPortable AP [id number]/2021FINDINGSThere is no significant change in appearance of the chest. Stable heart size with diffuse interstitial prominence in the lower lungs. No focal consolidation, edema, hilar enlargement or pleural fluid.IMPRESSIONNo change or new abnormality identified since 11/16/2020.Electronically signed by: TERESITA PACKER (Nov 18, 2020 06:46:49)
[2020-11-18 07:11] LABS: BASOPHILS % (AUTO) 0.3 % (0.2-1.0); EOSINOPHILS % (AUTO) 0.1 % (0.9-2.9); HEMATOCRIT 35.7 % (36.0-47.0); HEMOGLOBIN 12.1 g/dL (12.0-16.0); LYMPHOCYTES # (AUTO) 0.6 X10^3/uL (1.3-2.9); LYMPHOCYTES % (AUTO) 5.5 % (21.0-51.0); MEAN CORPUSCULAR HEMOGLOBIN 26.2 pg (27.0-34.0); MEAN CORPUSCULAR HGB CONC 33.9 g/dL (33.0-35.0); MEAN CORPUSCULAR VOLUME 77.4 fL (80.0-100.0); MEAN PLATELET VOLUME 8.1 fL (7.4-11.0); MONOCYTES # (AUTO) 0.8 x10^3/uL (0.3-0.8); MONOCYTES % (AUTO) 7.4 % (0.0-13.0); NEUTROPHILS # (AUTO) 9.4 x10^3/uL (2.2-4.8); NEUTROPHILS % (AUTO) 86.7 % (42.0-75.0); PLATELET COUNT 413 X10^3/uL (150.0-450.0); RED BLOOD COUNT 4.61 X10^6/uL (3.5-5.4); RED CELL DISTRIBUTION WIDTH 14.6 % (11.6-16.5); WHITE BLOOD COUNT 10.9 X10^3/uL (3.6-10.0)
[2020-11-18 07:17] LABS: ALANINE AMINOTRANSFERASE 42 Units/L (12-78); ALBUMIN 2.5 g/dL (3.4-5.0); ALKALINE PHOSPHATASE 89 Units/L (46-116); ASPARTATE AMINO TRANSFERASE 46 Units/L (15-37); BLOOD UREA NITROGEN 10 mg/dL (7-18); CALCIUM 7.9 mg/dL (8.5-10.1); CARBON DIOXIDE 32.3 mmol/L (21-32); CHLORIDE 94 mmol/L (98-107); COR CA(FOR HYPOALB) 9.1 mg/dL (8.5-10.1); COR NA(FOR HYPERGLY) 131 mmol/L (136-145); SODIUM 131 mmol/L (136-145); eGFR NON BLACK RACES > 60 (>60)
[2020-11-18] MEDS: PULMICORT NEB TX 0.5 MG NEB SCH (08:50)
[2020-11-18] MEDS: BROVANA IN SCH (08:50)
[2020-11-18] MEDS: ZINC SULFATE PO SCH (09:27)
[2020-11-18] MEDS: VITAMIN D3 125 mcg (5,000 UNITS) PO SCH (09:27)
[2020-11-18] MEDS: SOLU-Medrol 125 MG VIAL IVP SCH (09:27)
[2020-11-18] MEDS: ROCEPHIN VIAL 1 GRAM 1 G in NS 100 ML IV + SPIKE MINIBAG* 100 ML IV SCH (09:27)
[2020-11-18] MEDS: TRICOR TAB 160 MG PO SCH (09:27)
[2020-11-18] MEDS: VITAMIN A PO SCH (09:27)
[2020-11-18] MEDS: PROTONIX TAB 40 MG PO SCH (09:28)
[2020-11-18] MEDS: MILK OF MAGNESIA PO SCH (09:28)
[2020-11-18] MEDS: LOVENOX INJ 30 MG SYR SC SCH (09:28)
[2020-11-18] MEDS: LOPRESSOR TAB 50 MG PO SCH (09:28)
[2020-11-18 13:31] VITALS: BP 119/66
== END 2020-11-18 13:26 | disposition home health service (06) | DRG 177 ==
LOC: ER 11:09 → MED/SURG 14:45
PROVIDERS: ADMIT Internal Medicine; ATTEND Internal Medicine
DX: R41.82 Altered mental status, unspecified; B96.29 Other Escherichia coli [E. coli] as the cause of diseases classified elsewhere; K52.89 Other specified noninfective gastroenteritis and colitis; U07.1 COVID-19; N39.0 Urinary tract infection, site not specified; K21.9 Gastro-esophageal reflux disease without esophagitis; I10 Essential (primary) hypertension; R26.81 Unsteadiness on feet; E87.6 Hypokalemia; J12.81 Pneumonia due to SARS-associated coronavirus; E87.1 Hypo-osmolality and hyponatremia